=== PATIENT | male | born 1955 | race Caucasian/White ===

== ENCOUNTER 2016-04-17 12:21 | Emergency (ER) | payer OTHER ==
[~2016-04-17] VITALS: Ht 177.8 cm; Wt 94.0 kg
[~2016-04-17 12:21] MED LIST: ASPI-664 PO; BACTDS PO; CEPH-443 PO; LANT3I SC; METF-388 PO
[2016-04-17 12:29] VITALS: Ht 177.8 cm; Wt 94.0 kg
[2016-04-17 13:35] LABS: BASOPHILS % 0.3 % (0.0-2.0); EOSINOPHILS # 0.3 10^3/ul (0.0-0.5); EOSINOPHILS % 2.2 % (0.0-7.0); HEMATOCRIT 30.8 % (42.0-52.0); HEMOGLOBIN 10.4 g/dl (14.0-18.0); LYMPHOCYTES # 1.4 10^3/ul (0.8-2.9); LYMPHOCYTES % 11.5 % (15.0-51.0); MEAN CORPUSCULAR HEMOGLOBIN 30.2 pg (29.0-33.0); MEAN CORPUSCULAR HGB CONC 33.7 g/dl (32.0-37.0); MEAN CORPUSCULAR VOLUME 89.7 fl (82.0-101.0); MEAN PLATELET VOLUME 8.6 fl (7.4-10.4); MONOCYTE # 0.8 10^3/ul (0.3-0.9); MONOCYTES % 6.4 % (0.0-11.0); NEUTROPHIL # 9.6 10^3/ul (1.6-7.5); NEUTROPHILS % 79.6 % (39.0-77.0); PLATELET COUNT 290 10^3/UL (140-440); RED BLOOD COUNT 3.43 10^6/ul (4.70-6.10); RED CELL DISTRIBUTION WIDTH 12.5 % (11.5-14.5)
[2016-04-17 13:41] LABS: CONDITION 1
[2016-04-17 13:42] LABS: POTASSIUM 4.1 mmol/L (3.5-5.1)
[2016-04-17 13:44] LABS: ALBUMIN/GLOBULIN RATIO 1.14; BILIRUBIN,INDIRECT 0.5 mg/dl (0-1.1); BILIRUBIN,TOTAL 0.5 mg/dl (0.2-1.3); CREATININE 1.33 mg/dl (0.61-1.24); TOTAL PROTEIN 7.5 g/dl (6.1-8.1)
[2016-04-17 13:45] LABS: CALCIUM 8.4 mg/dl (8.4-10.2)
[2016-04-17 13:47] LABS: C-REACTIVE PROTEIN 3.5 mg/dl (0.0-0.9)
[2016-04-17] MEDS ORDERED: LEVO500T72 PO (15:07)
[2016-04-17] MEDS ORDERED: CLOT30CR24 TOP (15:07)
[2016-04-17] MEDS ORDERED: NEOM28OI TP (15:07)
--- NOTE | 2016-04-17 15:13 | ERD ---
ER Documentation Chief Complaint Date/Time DATE: 04/17/16 TIME: 15:09 Chief Complaint WOUND NOTICED RT 5TH TOE. HX DIABETIC FOOT ULCER. HPI This 61-year-old male presents with a one-day history of a blister on his right fifth toe with some skin avulsion and redness. 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 He has no sensation in his right foot. He denies any history of trauma. His tetanus is not up-to-date by history. Is also had a cough for last 2 weeks, nonproductive. ROS All systems reviewed and are negative except as per history of present illness. Medications Home Meds Active Scripts Neomycin Tam/Bacitrac Zn/Poly (Triple Antibiotic Ointment) 28 Gm Oint...g., 28 GM TP BID for 7 Days Prov:YASMEEN MELGAR MD 04/17/16 Clotrimazole* (Clotrimazole* AF) 1% - 30 Gm Cream.gm., 1 APPLIC TOP BID for 10 Days, TUB Prov:YASMEEN MELGAR MD 04/17/16 Levofloxacin* (Levaquin*) 500 Mg Tablet, 500 MG PO DAILY for 10 Days, TAB Prov:YASMEEN MELGAR MD 04/17/16 Sulfamethoxazole-Trimethoprim* (Bactrim* DS) 800-160 Mg Tab, 1 TAB PO BID for 7 Days, TAB Prov:SUZANNE RAMIREZ PA-C 04/24/15 Cephalexin* (Keflex*) 500 Mg Capsule, 500 MG PO QID for 7 Days, CAP Prov:SUZANNE RAMIREZ PA-C 04/24/15 Reported Medications Aspirin* (Aspirin* EC) 81 Mg Tablet.dr, 81 MG PO DAILY, TAB 04/20/15 Insulin Glargine* (Lantus*) 100 Unit/Ml Soln, 1-1.5 UNIT SC HS, EA 10/02/14 Metformin Hcl* (Metformin Hcl*) 1,000 Mg Tablet, 1000 MG PO BID, TAB 10/02/14 Allergies Allergies: Coded Allergies: No Known Allergy (Unverified , 04/20/15) PMhx/Soc History of Surgery: Yes (L BKA) Anesthesia Reaction: No Hx Neurological Disorder: No Hx Respiratory Disorders: No Hx Cardiac Disorders: No Hx Psychiatric Problems: No Hx Miscellaneous Medical Probl: Yes (type 2 diabetes) Hx Alcohol Use: No Hx Substance Use: No Hx Tobacco Use: No Physical Exam Vitals Vital Signs Date Time Temp Pulse Resp B/P Pulse Ox O2 Delivery O2 Flow Rate FiO2 04/17/16 12:29 98.4 93 16 136/73 98 Physical Exam Const: [] Head: Atraumatic Eyes: Normal Conjunctiva ENT: Normal External Ears, Nose and Mouth. Neck: Full range of motion..~ No meningismus. Resp: Clear to auscultation bilaterally Cardio: Regular rate and rhythm, no murmurs Abd: Soft, non tender, non distended. Normal bowel sounds Skin: No petechiae or rashes Back: No midline or flank tenderness Ext: No cyanosis, or edema Neur: Awake and alert Psych: Normal Mood and Affect Result Diagram: 04/17/16 1320 04/17/16 1320 Results 24 hrs Laboratory Tests Test 04/17/16 13:20 Alanine Aminotransferase (ALT/SGPT) 23IU/L Albumin 4.0g/dl Albumin/Globulin Ratio 1.14 Alkaline Phosphatase 78IU/L Anion Gap 14 Aspartate Amino Transf (AST/SGOT) 21IU/L Basophils # 0.010^3/ul Basophils % 0.3% Blood Urea Nitrogen 21mg/dl C-Reactive Protein 3.5mg/dl Calcium Level 8.4mg/dl Carbon Dioxide Level 29mmol/L Chloride Level 103mmol/L Creatinine 1.33mg/dl Direct Bilirubin 0.00mg/dl Eosinophils # 0.310^3/ul Eosinophils % 2.2% Erythrocyte Sedimentation Rate 46mm/Hr Globulin 3.50g/dl Glucose Level 183mg/dl Hematocrit 30.8% Hemoglobin 10.4g/dl Indirect Bilirubin 0.5mg/dl Lymphocytes # 1.410^3/ul Lymphocytes % 11.5% Mean Corpuscular Hemoglobin 30.2pg Mean Corpuscular Hemoglobin Concent 33.7g/dl Mean Corpuscular Volume 89.7fl Mean Platelet Volume 8.6fl Monocytes # 0.810^3/ul Monocytes % 6.4% Neutrophils # 9.610^3/ul Neutrophils % 79.6% Nucleated Red Blood Cells # 0.010^3/ul Nucleated Red Blood Cells % 0.0/100WBC Platelet Count 16964^3/UL Potassium Level 4.1mmol/L Red Blood Count 3.4310^6/ul Red Cell Distribution Width 12.5% Sodium Level 142mmol/L Total Bilirubin 0.5mg/dl Total Protein 7.5g/dl White Blood Count 12.010^3/ul Procedures/MDM CBC shows a white blood cell count of 12. Hemoglobin is 10. BUN and creatinine are 21 and 1.33 respectively. X-ray right foot 3V Interpreted by me: Bones: [No fracture] Joints: [No dislocation] Foreign body: [None]. Impression-no evidence of osteomyelitis and right foot. No fracture no dislocation. Chest X-ray 1V Interpreted by me: Soft Tissue: No acute abnormalities Bones: No acute abnormalities Mediastinum/Cardiac Silhouette/Lungs: [No acute abnormalities]. Impression- normal 1 view chest x-ray ESR is elevated at 42. Patient presents with a unroofed blister on his right fourth webspace without significant signs of cellulitis and no definite signs of osteomyelitis. His ESR is Elevated at 42 patient has other comorbidities so not convinced that the elevated ESR is due to skin infection but will be useful for ongoing monitoring patient does not improve.. Patient does not have any absolute signs of osteomyelitis currently but patient will treat with Levaquin and Lotrimin for what appears to be a blister from friction. Patient will referred to amputation prevention center for wound care and ongoing treatment and evaluation. Patient was advised to return for increasing redness, fevers, new or worsening symptoms and recommending wound check in approximately 2-3 days. Patient shows renal insufficiency as well which is likely chronic given his comorbidities. Patient should follow-up with primary care doctor for this. Departure Diagnosis: Primary Impression: Blister Additional Impressions: Ulcer of left lower leg Non-pressure ulcer stage: limited to breakdown of skin Qualified Code: L97.921 - Ulcer of left lower leg, limited to breakdown of skin Renal insufficiency Condition: Stable Patient Instructions: Blister, Skin Ulcer, Simple Referrals: [facility] Additional Instructions: No definite signs of infection deeper than the superficial skin today but monitor wound closely. See primary doctor this week and ideally [facility] prevention center for wound care. Recheck sooner for increasing redness, fevers , new symptoms. YASMEEN MELGAR MD Apr 17, 2016 15:13
[2016-04-17] MEDS ORDERED: DIPHTH/TET/ACEL PERTUSS (ADULT) 0.5 ML VIAL IM* ONE (15:30)
[2016-04-17 15:39] VITALS: BP 118/78; PULSE 90; RESP 20
--- NOTE | 2016-04-17 19:19 | RADRPT ---
PROCEDURE: XR Chest. CLINICAL INDICATION: Chest pain TECHNIQUE: PA and lateral chest x-ray. COMPARISON: No prior chest radiograph. FINDINGS: The lungs are clear. No pleural effusion or pneumothorax. Heart size is magnified. The osseous structures are unremarkable. Mild degenerative changes of both shoulders are present. Vascular calcifications of the aorta are present compatible with atherosclerosis. IMPRESSION: No acute abnormalities. RPTAT: AADD .Don River MD, MD Date Time Electronically viewed and signed by .Don River MD, on 04/17/2016 14:33 .B/
--- NOTE | 2016-04-17 19:19 | RADRPT ---
PROCEDURE: XR right foot. CLINICAL INDICATION: Right foot pain and cellulitis. TECHNIQUE: Three views of the right foot were obtained. COMPARISON: No prior studies are available for comparison. FINDINGS: A marker was placed adjacent to the fifth digit for localization purposes. There is no evidence for fracture, subluxation, or dislocation. No bone destructive changes to suggest osteomyelitis. No s oft tissue air or foreign body identified. There is moderate arthrosis of the first metatarsal phal angeal joint. There is chronic enthesopathy of the fifth metatarsal tuberosity.. There is also grea t toe IP joint arthrosis seen as subcortical cyst formation of the medial proximal phalangeal head. IMPRESSION: 1. No evidence for fracture, subluxation or dislocation. 2. No bone destructive changes to suggest osteomyelitis. 3. No evidence for soft tissue air. 4. Moderate first metatarsal phalangeal joint arthrosis and there is fifth metatarsal tuberosity ch ronic enthesopathy. RPTAT: XX .Zay Larsen MD, MD Date Time Electronically viewed and signed by .Zay Larsen MD, on 04/17/2016 14:52 .T/
== END 2016-04-17 15:41 | disposition home or self-care (01) ==
LOC: FTE 12:21
DX: R23.8 Other skin changes (principal); L97.921 Non-pressure chronic ulcer of unspecified part of left lower leg limited to breakdown of skin; N28.9 Disorder of kidney and ureter, unspecified; E11.9 Type 2 diabetes mellitus without complications; Z23 Encounter for immunization; Z79.4 Long term (current) use of insulin; Z79.84 Long term (current) use of oral hypoglycemic drugs; Z79.82 Long term (current) use of aspirin
CPT/HCPCS: 36415; 71010; 73630; 80053; 85025; 85651; 86140; 90471; Z7502

== ENCOUNTER 2017-01-19 11:36 | Emergency (ER) | payer OTHER ==
[~2017-01-19] VITALS: Ht 177.8 cm; Wt 95.0 kg
[~2017-01-19 11:36] MED LIST changes: +CLOT30CR24 TOP; +LEVO500T72 PO; -METF-388 PO; +METF1000 PO; +NEOM28OI TP
[2017-01-19 11:37] VITALS: Ht 177.8 cm; Wt 95.0 kg
--- NOTE | 2017-01-19 12:57 | RADRPT ---
PROCEDURE: XR Chest. CLINICAL INDICATION: Chest pain TECHNIQUE: Single portable view of the chest was obtained COMPARISON: 04/17/16 FINDINGS: The heart is enlarged. The lungs are clear. There is no pleural effusion or pneumothorax. RPTAT: AA IMPRESSION: Mild Cardiomegaly. .Lucien Allen MD, MD Date Time Electronically viewed and signed by .Lucien Allen MD, on 01/19/2017 12:56 .S/
[2017-01-19] MEDS ORDERED: AZIT250T94 PO (13:33)
[2017-01-19] MEDS ORDERED: GUAI-637 PO (13:33)
[2017-01-19 13:45] VITALS: BP 185/85; PULSE 87; RESP 18; TEMP 99.1
--- NOTE | 2017-01-19 13:45 | ERD ---
ER Documentation Chief Complaint Date/Time DATE: 01/19/17 TIME: 13:42 Chief Complaint cough, chest congestion,sob x 1 day HPI This is a 61-year-old male presents to the ER with a cough and chest congestion with for the last day. Patient states that whenever he coughs his chest hurts. States that his fiance has bacterial pneumonia and is currently taking antibiotics for it. Cough is dry and severe. He has not had any fevers or chills. He does admit to stuffy nose, sore throat and headache. Patient is diabetic and is compliant with his medication. ROS 12 point review of systems was done, all negative except per HPI. Medications Home Meds Active Scripts Guaifenesin* (Robitussin*) 100 Mg/5 Ml Syrup, 200 MG PO Q6H Y for COUGH for 5 Days, ML Prov:FABIO HERNANDEZ 01/19/17 Azithromycin* (Zithromax*) 250 Mg Tablet, 250 MG PO .BrandeePACK DIRECTED, #6 TAB TAKE 500 MG (2 TABS) THE FIRST DAY THEN 250 MG (1 TAB) DAYS 2-5 Prov:FABIO HERNANDEZ 01/19/17 Neomycin Tam/Bacitrac Zn/Poly (Triple Antibiotic Ointment) 28 Gm Oint...g., 28 GM TP BID for 7 Days Prov:YASMEEN MELGAR MD 04/17/16 Clotrimazole* (Clotrimazole* AF) 1% - 30 Gm Cream.gm., 1 APPLIC TOP BID for 10 Days, TUB Prov:YASMEEN MELGAR MD 04/17/16 Levofloxacin* (Levaquin*) 500 Mg Tablet, 500 MG PO DAILY for 10 Days, TAB Prov:YASMEEN MELGAR MD 04/17/16 Sulfamethoxazole-Trimethoprim* (Bactrim* DS) 800-160 Mg Tab, 1 TAB PO BID for 7 Days, TAB Prov:SUZANNE RAMIREZ PA-C 04/24/15 Cephalexin* (Keflex*) 500 Mg Capsule, 500 MG PO QID for 7 Days, CAP Prov:SUZANNE RAMIREZ PA-C 04/24/15 Reported Medications Aspirin* (Aspirin* EC) 81 Mg Tablet., 81 MG PO DAILY, TAB 04/20/15 Insulin Glargine* (Lantus*) 100 Unit/Ml Soln, 1-1.5 UNIT SC HS, EA 10/02/14 Metformin Hcl* (Metformin Hcl*) 1,000 Mg Tablet, 1000 MG PO BID, TAB 10/02/14 Allergies Allergies: Coded Allergies: No Known Allergy (Unverified , 01/19/17) PMhx/Soc History of Surgery: Yes (L BKA) Anesthesia Reaction: No Hx Neurological Disorder: No Hx Respiratory Disorders: No Hx Cardiac Disorders: No Hx Psychiatric Problems: No Hx Miscellaneous Medical Probl: Yes (type 2 diabetes) Hx Alcohol Use: No Hx Substance Use: No Hx Tobacco Use: No Physical Exam Vitals Vital Signs Date Time Temp Pulse Resp B/P Pulse Ox O2 Delivery O2 Flow Rate FiO2 01/19/17 11:37 99.8 87 20 194/84 100 Physical Exam GENERAL: The patient is well-developed, well-nourished, in no acute distress. NECK: Cervical spine is non tender with no step off. Supple, no nuchal rigidity HEENT: Atraumatic. Pupils equal, round and reactive to light. Extraocular muscles are grossly intact. Conjunctivae pink, no discharge. Bilateral tympanic membranes are clear with no evidence of erythema, effusion or dulling of the light reflex. Tonsilar erythema with no exudates or uvular deviation. Clear rhinorrhea. RESPIRATORY: Clear to auscultation bilaterally. There are no rales, wheezes or rhonchi. HEART: Regular rate and rhythm. No murmurs, clicks, rubs or gallops. EXTREMITIES: No clubbing or cyanosis. Full range of motion. Grossly neurovascularly intact. NEUROLOGIC: Alert and oriented. Cranial nerves II through XII are intact. SKIN: There is no rash. The skin is warm and dry. Procedures/MDM EKG [address] elevation no T-wave inversions signed by Dr. Ivey Differential diagnosis includes but is not limited to; Viral URI, allergic rhinitis, bronchitis, pertussis,pneumonia. Patient will be treated for possible bacterial bronchitis, patient's fianc does have bacterial pneumonia is currently on antibiotics with patient being diabetic he is at higher risk for infection. Clinical suspicion for pneumonia is low as patient appears well , is not hypoxic or in any respiratory distress. Additionally, patients physical examination is benign. Plan was discussed with patient they understand and agree. Patient needs to follow up with PCP in 1-2 days or return to ER sooner if symptoms worsen. Departure Diagnosis: Primary Impression: Upper respiratory infection Condition: Stable Patient Instructions: What Is Bronchitis? Additional Instructions: Call your primary care doctor TOMORROW for an appointment during the next 1-2 days.See the doctor sooner or return here if your condition worsens before your appointment time. FABIO HERNANDEZ Jan 19, 2017 13:45
== END 2017-01-19 13:45 | disposition home or self-care (01) ==
LOC: FTE 11:36
DX: J06.9 Acute upper respiratory infection, unspecified (principal); E11.9 Type 2 diabetes mellitus without complications; R07.9 Chest pain, unspecified; Z79.4 Long term (current) use of insulin; Z79.82 Long term (current) use of aspirin
CPT/HCPCS: 71010; 93005; Z7502